=== PATIENT | male | born 1990 | race Caucasian/White ===

== ENCOUNTER 2019-02-20 20:11 | Emergency (ER) | payer SELFPAY ==
[2019-02-20 20:31] VITALS: BP 109/63; PULSE 67; TEMP 98.2
[2019-02-20] MEDS ORDERED: VANCOMYCIN 1,000 MG in DEXTROSE 5%-WATER - 250 ML IVPB ONE (21:19)
[2019-02-20] MEDS ORDERED: VANCOMYCIN 1,000 MG VIAL (RESTRICTED TO ID ONLY) ONE (21:32)
[2019-02-20 22:10] LABS: BASO % 1.5 % (0-2.0); EOS % 1.6 % (0-4.5); HEMATOCRIT 44.8 % (35.4-49); HEMOGLOBIN 14.8 GM/dl (11.7-16.9); LYMPH % 23.1 % (8-40); MEAN PLT VOLUME 7.5 fl (7.5-11.1); NEUT % 66.8 % (42.8-82.8); PLATELET COUNT 334 K/MM3 (134-434); RBC 5.09 M/mm3 (4.00-5.60); RDW 12.5 % (11.9-15.9)
--- NOTE | 2019-02-21 03:12 | PDOC ---
Documentation entered by Reilly Damian SCRIBE, acting as scribe for Heather Dougherty MD. Heather Dougherty MD: This documentation has been prepared by the Rickie paz Xhesika, SCRIBE, under my direction and personally reviewed by me in its entirety. I confirm that the documentation accurately reflects all work, treatment, procedures, and medical decision making performed by me. History of Present Illness - General Chief Complaint: Redness To Affected Area Stated Complaint: LEFT FACE REDNESS Time Seen by Provider: 02/20/19 20:19 History Source: Patient Exam Limitations: No Limitations - History of Present Illness Initial Comments: 02/20/19 21:21 The patient is a 28 year old male with no significant PMH of who presents to the emergency department with 2 days of L cheek redness and erythema. The patient states he endorsed a burning pimple 2 days ago that was hurting so he squeezed the pimple this morning and pus came out. Patient denies any vision changes. Patient denies previous skin infections. Patient denies any pain to affected area. The patient denies chest pain, shortness of breath, headache and dizziness. Denies fever, chills, cough, nausea, vomiting, diarrhea and constipation. Denies dysuria, frequency, urgency and hematuria. Allergies: NKDA. honey bee Social history: Vapes every other day PCP: [facility] Past History - Past Medical History Allergies/Adverse Reactions: Allergies Allergy/AdvReac Type Severity Reaction Status Date / Time bee venom protein (honey bee) Allergy Mild Verified 02/20/19 20:14 Home Medications: Ambulatory Orders Amox-Tr/K Cl [Augmentin - 875Mg Tablet] 1 tab PO BID #14 tablet 02/20/19 COPD: No - Immunization History Immunization Up to Date: Yes - Suicide/Smoking/Psychosocial Hx Smoking History: Never smoked Hx Alcohol Use: Yes (SOCIAL) Drug/Substance Use Hx: No Review of Systems - Review of Systems Able to Perform ROS?: Yes Comments:: 02/20/19 21:21 GENERAL/CONSTITUTIONAL: No fever or chills. No weakness. HEAD, EYES, EARS, NOSE AND THROAT: No change in vision. No ear pain or discharge. No sore throat. CARDIOVASCULAR: No chest pain or shortness of breath. RESPIRATORY: No cough, wheezing, or hemoptysis. GASTROINTESTINAL: No nausea, vomiting, diarrhea or constipation. GENITOURINARY: No dysuria, frequency, or change in urination. MUSCULOSKELETAL: No joint or muscle swelling or pain. No neck or back pain. SKIN: (+) L cheek redness and erythema. NEUROLOGIC: No headache, vertigo, loss of consciousness, or change in strength/ sensation. ENDOCRINE: No increased thirst. No abnormal weight change. HEMATOLOGIC/LYMPHATIC: No anemia, easy bleeding, or history of blood clots. ALLERGIC/IMMUNOLOGIC: No hives or skin allergy. *Physical Exam - Vital Signs Last Vital Signs Temp Pulse Resp BP Pulse Ox 98.2 F 67 15 109/63 100 02/20/19 20:13 02/20/19 20:13 02/20/19 20:13 02/20/19 20:13 02/20/19 20:13 - Physical Exam Comments: 02/20/19 21:21 GENERAL: Awake, alert, and fully oriented, in no acute distress HEAD: No signs of trauma EYES: PERRLA, EOMI, sclera anicteric, conjunctiva clear ENT: Auricles normal inspection, hearing grossly normal, nares patent, oropharynx clear without exudates. Moist mucosa. (+) L cheek 3cm by 3cm slightly indurated, nonfluctuant, mildly tender area of mid cheek with central cm erythematous region. (+) mild erythema and edema extends upwards to lower eyelid. No erythema or edema extension into her conjunctival. No pustular discharge. No trismus notes NECK: Normal ROM, supple, no lymphadenopathy, JVD, or masses NEUROLOGICAL: Cranial nerves II through XII grossly intact. Normal speech, normal gait SKIN: Warm, Dry, normal turgor, no rashes or lesions noted. ED Treatment Course - LABORATORY CBC & Chemistry Diagram: 02/20/19 21:50 Medical Decision Making - Medical Decision Making As noted above, this otherwise healthy 28-year-old man presents with 1 day history of progressive erythema/edema of the left cheek. This area surrounds an acne pustule that the patient manipulated manually yesterday, attempting to drain the pustule. No previous history of abscesses/cellulitis. No history of resistant organism colonization or infection. Exam is noted with edema/ erythema extending to the left lower eyelid but no evidence of orbital cellulitis. No significant fluctuance and no discharge from wound on examination. No material available for wound culture. Because of presence of rapidly progressive facial cellulitis, IV dose of 1 g vancomycin given. CBC sent: White blood cell count normal at 8000; no other evidence of abnormality of the rest of the CBC. Patient states that he feels better with decrease in edema of the lower eyelid after infusion of the IV vancomycin. He will be discharged with prescription for Augmentin 875/125 twice a day for 1 week sent to his pharmacy. He should begin this medication tomorrow, taking each dose with full meal. He should follow-up with his PMD within the next 48 hours. Meanwhile, if he has increase in pain/swelling or development of difficulty with his vision/fever/chills, he should return to the ER. *DC/Admit/Observation/Transfer Diagnosis at time of Disposition: Cellulitis of cheek - Discharge Dispostion Disposition: HOME Condition at time of disposition: Stable - Prescriptions Prescriptions: Amox-Tr/K Cl [Augmentin - 875Mg Tablet] 1 tab PO BID #14 tablet - Referrals Referrals: Cornelius Chapin MD [Primary Care Provider] - - Patient Instructions Printed Discharge Instructions: Cellulitis Additional Instructions: Augmentin 875/125 twice a day for 1 week; take this medication with a meal Keep head elevated as much as possible Motrin/Aleve/acetaminophen as needed for pain Follow-up with your doctor within the next 48 hours Return to ER immediately if you have increased pain/swelling or develop fever/ chills - Post Discharge Activity
== END 2019-02-20 23:34 | disposition home or self-care (01) ==
LOC: FER 20:11
DX: L03.211 Cellulitis of face (principal)
CPT/HCPCS: 36415; 85025; 99282-25